=== PATIENT | male | born 1985 | race Caucasian/White ===

== ENCOUNTER 2016-04-20 12:38 | Emergency (ER) | payer OTHER, BC ==
--- NOTE | ~2016-04-20 | ER ---
PATIENT'S NAME: JUAN ALBERTO [facility] AGE: 30 Y [address] ROOM: [place] [id number] LOCATION: [facility] ADMIT DATE: 04/20/2016 ER/Outpatient Report DISCHARGE DATE: 04/20/2016 FAMILY PHYSICIAN: PHYSICIAN, NO ATTENDING PHYSICIAN: Jose Berg Time of Arrival: 1245 hours. Time of Evaluation: 1250 hours. CHIEF COMPLAINT: Eye injury. HISTORY OF PRESENT ILLNESS: The patient states approximately 20 minutes prior to arrival, he was grinding on ceramic at work. He works at [employer] A piece of the glaze got up under his protective eye wear and scratched his right eye. This is the eye that is irritated. He did flush it for good 3 minutes after it happened, but it continues to be uncomfortable. He denies any change in his vision. He has not been ill in anyway prior to this episode. ALLERGIES: NO KNOWN ALLERGIES. CURRENT MEDICATIONS: On his chart and reviewed by me. PAST MEDICAL HISTORY: Mood disorder. PAST SURGICAL HISTORY: Right ankle surgery, forearm surgery. SOCIAL HISTORY: Denies use of tobacco, drugs. Drinks alcohol on a social basis only. 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 Last tetanus shot is unknown. REVIEW OF SYSTEMS: All negative other than those mentioned in the HPI. PHYSICAL EXAMINATION: VITAL SIGNS: He states he is 6 feet tall. He weighs 85.7 kg. Blood pressure is 127/84, pulse is 69, respirations 18, temperature of 96.6 tympanic, O2 saturation 96% on room air. EYES: Visual acuity is 20/20 each eye and 20/20 both eyes, uncorrected. GENERAL: The patient is awake, alert, and oriented x4. SKIN: His skin is PATIENT'S NAME: JUAN ALBERTO [facility] AGE: 30 Y [address] ROOM: [place] [address] LOCATION: [facility] ADMIT DATE: 04/20/2016 ER/Outpatient Report DISCHARGE DATE: 04/20/2016 FAMILY PHYSICIAN: PHYSICIAN, NO ATTENDING PHYSICIAN: Jose Berg pink, warm, and dry. RESPIRATIONS: Even and nonlabored. HEENT: Pupils are equal and reactive to light. Extraocular movement is intact. The right conjunctiva is reddened. No drainage from the eye is noted. EMERGENCY DEPARTMENT COURSE: Proparacaine ophthalmic drop was placed for anesthesia. Fluorescein strip was used to stain the eye. Without a Wood's lamp, an abrasion to the right cornea is noted. It does not cross the iris field. Upper lid was flipped. No foreign body is seen. No foreign body of the lower lid is noted. Eye was rinsed well with saline. IMPRESSION: Corneal abrasion. PLAN: A prescription was written for tobramycin ophthalmic drops. He is to use drop 3 times a day for the next 3 days. He should follow up with the eye doctor in 2-3 days. He was given the name of the different clinics here in town. He verbalized understanding. JANET DOS SANTOS APRN FOR DO GRACIELA GOYAL/braeden /[id number] d: 04/20/162027 t: 04/28/16 0601, OUTPATIENT REPORT
== END 2016-04-20 13:14 | disposition disaster alternative care site (69) ==
LOC: GACC 12:38
DX: S05.01XA Injury of conjunctiva and corneal abrasion without foreign body, right eye, initial encounter (principal); Z98.890 Other specified postprocedural states; W22.8XXA Striking against or struck by other objects, initial encounter; Y92.69 Other specified industrial and construction area as the place of occurrence of the external cause; Y99.0 Civilian activity done for income or pay

== ENCOUNTER → 2016-08-13 | Outpatient (CLI) | payer BC | END | disposition disaster alternative care site (69) | LOC: GRAD 15:21 | DX: M25.572 Pain in left ankle and joints of left foot (principal) ==